=== PATIENT | female | born 1945 | race Caucasian/White ===

== ENCOUNTER 2021-05-18 05:17 | Day surgery (SDC) | payer MEDICARE, MEDICAID ==
[2021-05-17 09:52] LABS: COVID AG,FIA SOURCE NASOPHARYNGEAL
[~2021-05-18] VITALS: Ht 152.4 cm; Wt 69.1 kg
[~2021-05-18 05:17] MED LIST: KETOROLAC TROMETHAMINE 0.5% 5 ML OPHTHALMIC SOLUTION ONE; MOXIFLOXACIN HCL 0.5% 3 ML OPHTHALMIC SOLUTION ONE; PHENYLEPHRINE HCL 2.5% 2 ML OPHTHALMIC SOLUTION ONE; RINGERS SOLUTION,LACTATED 500 ML IV ONE; TROPICAMIDE 1% 2 ML OPHTHALMIC SOLUTION ONE
[2021-05-18] MEDS ORDERED: FentaNYL CITRATE PF 100 MCG/2 ML VIAL IVP ONE (05:18)
[2021-05-18] MEDS ORDERED: MIDAZOLAM HCL 2 MG/2 ML VIAL IVP ONE (05:18)
[2021-05-18] MEDS: KETOROLAC TROMETHAMINE 0.5% 5 ML OPHTHALMIC SOLUTION OD SCH ×3 (06:00→06:11)
[2021-05-18] MEDS: PHENYLEPHRINE HCL 2.5% 2 ML OPHTHALMIC SOLUTION OD SCH ×3 (06:00→06:11)
[2021-05-18] MEDS: TROPICAMIDE 1% 2 ML OPHTHALMIC SOLUTION OD SCH ×3 (06:00→06:11)
[2021-05-18] MEDS: MOXIFLOXACIN HCL 0.5% 3 ML OPHTHALMIC SOLUTION OD SCH ×3 (06:00→06:11)
[2021-05-18 06:08] LABS: GLUCOMETER DEV NAME(LOC) SDS.; GLUCOSE,POINT OF CARE 161 MG/DL (70-110)
[2021-05-18] MEDS ORDERED: GLYB5TAB8 PO (06:15)
[2021-05-18] MEDS ORDERED: CYAN-53 PO (06:15)
[2021-05-18] MEDS ORDERED: EMPA10TA PO (06:15)
[2021-05-18] MEDS ORDERED: AMLO5TAB66 PO (06:15)
[2021-05-18] MEDS ORDERED: METF-446 PO (06:15)
[2021-05-18] MEDS ORDERED: ATOR40TA71 PO (06:15)
== END 2021-05-18 08:30 | disposition home or self-care (01) ==
LOC: SURGERY 05:17 → EDBD 05:17 → SURGERY 08:30
PROVIDERS: ATTEND Ophthalmology
DX: E11.36 Type 2 diabetes mellitus with diabetic cataract (principal); H25.11 Age-related nuclear cataract, right eye; H40.1110 Primary open-angle glaucoma, right eye, stage unspecified; I10 Essential (primary) hypertension; E78.00 Pure hypercholesterolemia, unspecified; Z90.49 Acquired absence of other specified parts of digestive tract; Z79.899 Other long term (current) drug therapy; Z85.038 Personal history of other malignant neoplasm of large intestine
CPT/HCPCS: 66984; 65820; 82962; 87426; 93005; C9803; J2250; J3010; J7120; V2632

== ENCOUNTER 2021-06-15 05:32 | Day surgery (SDC) | payer MEDICARE, MEDICAID ==
[2021-06-13 14:00] LABS: COVID AG,FIA SOURCE NASOPHARYNGEAL
[~2021-06-15] VITALS: Ht 152.4 cm; Wt 68.2 kg
[~2021-06-15 05:32] MED LIST changes: +AMLO5TAB66 PO; +ATOR40TA71 PO; +CYAN-53 PO; +EMPA10TA PO; +GLYB5TAB8 PO; +METF-446 PO
[2021-06-15] MEDS ORDERED: MIDAZOLAM HCL 2 MG/2 ML VIAL IVP ONE (05:33)
[2021-06-15] MEDS ORDERED: POVIDONE-IODINE 10% 15 ML SOLUTION UD TP ONE (05:33)
[2021-06-15] MEDS ORDERED: BALANCED SALT 15 ML OPHTHALMIC IRRIG.SOLN OU ONE (05:33)
[2021-06-15] MEDS ORDERED: LIDOCAINE/PF 1% 2 ML VIAL IM ONE (05:33)
[2021-06-15] MEDS ORDERED: CHONDR SULF A SOD/HYALURONATE 1.05 ML KIT IO ONE (05:33)
[2021-06-15] MEDS ORDERED: TETRACAINE HCL/PF 0.5% 4 ML OPHTHALMIC SOLUTION OU ONE (05:33)
[2021-06-15] MEDS ORDERED: EPINEPHrine 1:1,000 [1 MG/ML] AMP IM ONE (05:33)
[2021-06-15] MEDS ORDERED: FentaNYL CITRATE PF 100 MCG/2 ML VIAL IVP ONE (05:33)
[2021-06-15] MEDS ORDERED: RINGERS SOLUTION,LACTATED 500 ML IV ONE (06:00)
[2021-06-15] MEDS: MOXIFLOXACIN HCL 0.5% 3 ML OPHTHALMIC SOLUTION OS SCH ×3 (06:03→06:13)
[2021-06-15] MEDS: PHENYLEPHRINE HCL 2.5% 2 ML OPHTHALMIC SOLUTION OS SCH ×3 (06:03→06:13)
[2021-06-15] MEDS: KETOROLAC TROMETHAMINE 0.5% 5 ML OPHTHALMIC SOLUTION OS SCH ×3 (06:03→06:13)
[2021-06-15] MEDS: TROPICAMIDE 1% 2 ML OPHTHALMIC SOLUTION OS SCH ×3 (06:03→06:13)
[2021-06-15 06:37] LABS: GLUCOMETER DEV NAME(LOC) SDS.; GLUCOSE,POINT OF CARE 156 MG/DL (70-110)
== END 2021-06-15 09:00 | disposition home or self-care (01) ==
LOC: SURGERY 05:32
PROVIDERS: ATTEND Ophthalmology
DX: E11.36 Type 2 diabetes mellitus with diabetic cataract (principal); E11.39 Type 2 diabetes mellitus with other diabetic ophthalmic complication; H25.12 Age-related nuclear cataract, left eye; I25.10 Atherosclerotic heart disease of native coronary artery without angina pectoris; H40.1122 Primary open-angle glaucoma, left eye, moderate stage
CPT/HCPCS: 66984; 65820; 82962; 87426; A9575; C9803; J0171; J2250; J3010; J3490; J7120; V2632